=== PATIENT | female | born 1985 ===

== ENCOUNTER 2020-09-15 15:33 | Outpatient (REF) | payer OTHER, SELFPAY | END 2020-09-15 15:34 | disposition home or self-care (01) | LOC: HO.LAB 15:33 | PROVIDERS: Visit Provider Internal Medicine | DX: Z20.822 Contact with and (suspected) exposure to COVID-19 (principal) | CPT/HCPCS: C9803; U0003; U0005 ==

== ENCOUNTER 2021-04-14 13:40 | Emergency (ER) | payer OTHER, SELFPAY ==
[2021-04-14 14:11] VITALS: BP 129/64; PULSE 77; RESP 18; TEMP 36.8; O2SAT 100; BMI 38.2
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
[2021-04-14] MEDS: Fluorescein Sodium STRIP 1 STRIP EYE-RIGHT (16:00)
[2021-04-14] MEDS: Tetracaine HCl/PF 0.5% Oph Sol 4 ML DROPS 2 DROP EYE-RIGHT (16:00)
[2021-04-14] MEDS: Erythromycin Base 0.5% Oph Oin 1 GM TUBE 1 CM EYE-RIGHT (16:54)
== END 2021-04-14 17:08 | disposition home or self-care (01) ==
PROVIDERS: Emergency Provider Emergency Medicine Emergency Medical Services; PCP Internal Medicine
DX: S05.01XA Injury of conjunctiva and corneal abrasion without foreign body, right eye, initial encounter (principal); Y29.XXXA Contact with blunt object, undetermined intent, initial encounter; Y93.9 Activity, unspecified; Y92.009 Unspecified place in unspecified non-institutional (private) residence as the place of occurrence of the external cause; Y99.9 Unspecified external cause status
CPT/HCPCS: 99282; 99283

== ENCOUNTER 2022-10-08 10:58 | Emergency (ER) | payer OTHER, SELFPAY ==
[2022-10-08 11:31] VITALS: BP 123/72; PULSE 78; RESP 18; TEMP 36.8; O2SAT 98; BMI 40.7
--- NOTE | 2022-10-08 11:31 | ED_ITS ---
HPI - Abdominal Pain General Chief Complaint: Abdominal Pain <VIVIAN Boudreaux - Last Filed: 10/08/22 11:52> Stated Complaint: Acid reflux/Lightheaded <VIVIAN Boudreaux - Last Filed: 10/08/22 11:52> Time Seen by Provider: 10/08/22 11:49 <VIVIAN Boudreaux - Last Filed: 10/08/22 11:52> Source: patient <Boyd Bustamante - Last Filed: 10/08/22 14:58> Limitations: no limitations <Boyd Bustamante - Last Filed: 10/08/22 14:58> History of Present Illness HPI narrative: 37-year-old female who presents to the ER with complaints of feeling nauseous and started on Friday with reflux type symptoms all day. Patient took some Tums with some slight relief. Patient felt a little better on Friday and had some slight p.o. intake. Patient states symptoms worse at night where she felt bloated and had bouts of diarrhea Friday night. Patient states she began to feel weak at that time. Patient denies any recent sick contacts. Patient is not on any prescribed medications for reflux disease. Patient has a history of iron deficiency anemia but she is not currently taking iron at this time. Patient denies any abdominal surgical procedures other than C-sections. No recent travel history. No fever chills. Patient feeling weak dizzy and lightheaded. <Boyd Bustamante - Last Filed: 10/08/22 14:58> Related Data Home Medications: Previous Rx's Medication Instructions Recorded erythromycin 5 mg/gram (0.5 %) eye 0.5 inch ophthalmic (eye) BID 7 04/14/21 ointment days #3.5 grams omeprazole 20 mg capsule,delayed 20 mg PO DAILY #30 caps 10/08/22 release <VIVIAN Boudreaux Last Filed: 10/08/22 11:52> Allergies/Adverse Reactions: Allergies Allergy/AdvReac Type Severity Reaction Status Date / Time No Known Allergies Allergy Verified 04/14/21 14:10 <VIVIAN Boudreaux Last Filed: 10/08/22 11:52> Review of Systems Review of Systems General: No fever, no chills, positive weakness, positive dizziness Ophthalmology: No vision changes, no discharge ENT: No sore throat, no ear pain Cardiovascular: No chest pain, no peripheral edema, no shortness of breath Respiratory: No dyspnea, no sputum production, no cough Muscle skeletal: No malaise, no back pain, no neck pain, no extremity pain GI: Positive abdominal bloating, positive diarrhea, positive nausea which has resolved : No dysuria, no urgency, no frequency Psychiatric: No depression, no suicidal ideation, no homicidal ideation Skin: No rash Immunology: No immunocompromised Hematology: No bleeding, no bruising <Boyd Bustamante - Last Filed: 10/08/22 14:58> [facility] Past Medical History Medical History: Medical History (Updated 10/08/22 @ 14:57 by Boyd Bustamante) Back pain <VIVIAN Boudreaux Last Filed: 10/08/22 11:52> Social History Social History: Social History Alcohol intake: former Smoked in Last 30 Days: Yes Use of substances other than those prescribed or required for medical reasons: No Advance Directives: No Advance Directives Information Provided: Yes <VIVIAN Boudreaux - Last Filed: 10/08/22 11:52> Physical Exam ED Vital Signs: Vital Signs - 24 hr 10/08/22 11:31 Temperature 98.2 F Pulse Rate 78 Respiratory Rate 18 Blood Pressure 123/72 Pulse Oximetry 98 Oxygen Delivery Method Room Air BMI result Body Mass Index 40.7 <VIVIAN Boudreaux - Last Filed: 10/08/22 11:52> Vital Signs - 24 hr 10/08/22 11:31 Temperature 98.2 F Pulse Rate 78 Respiratory Rate 18 Blood Pressure 123/72 Pulse Oximetry 98 Oxygen Delivery Method Room Air BMI result Body Mass Index 40.7 <Boyd Bustamante - Last Filed: 10/08/22 14:58> General appearance: Awake, alert, cooperative, in no acute distress, nont oxic in appearance Skin: Warm, dry, no rash Eyes: PERRL, EOMI, no icterus ENT: Oropharynx normal, uvula midline Neck: Soft supple full range of motion, no nuchal rigidity Pulmonary: Breath sounds clear to auscultation bilaterally, no accessory muscle use Cardiovascular: Regular rate and rhythm, no murmurs and rubs Abdomen: Soft nontender, no rebound or guarding, positive bowel sounds Extremities: No deformity, nontender, no peripheral edema noted Neuro: Alert oriented x3, no focal deficit Psych: Normal affect <Boyd Bustamante - Last Filed: 10/08/22 14:58> Course Course Course Narrative: RME: 37yo F w/no sig PMHx c/o nausea, myalgias, generalized fatigue, lethargy, watery diarrhea & lightheadedness since Friday. Nontoxic appearing, vital signs stable labs, UA, COVID/flu ordered Full HPI, ROS and PE to be performed by primary ED provider. <VIVIAN Boudreaux - Last Filed: 10/08/22 11:52> Medical Decision Making Medical Decision Making MDM Narrative: Reflux disease Dehydration Viral gastroenteritis H.pylori Viral syndrome 37-year-old female with multiple symptoms presents the ER feeling weak lightheaded. Positive bouts of diarrhea reflux symptoms. 1000 mL normal saline IV CBC CMP UA pending 12:31 abdomen soft nontender no rebound or guarding no peritoneal signs. Low suspicion for into abdominal surgical abdomen at this time 13:00 patient is resting comfortably abdomen nontender patient states symptoms have improved. Will continue IV hydration till finished 14:56 plant dispatched patient home at this time respiratory swab was negative for COVID-19 influenza. Labs mostly unremarkable at this time symptoms improve since IV hydration symptoms likely secondary to gastritis and underlying reflux disease close follow-up with PCP will be recommended. <Boyd Bustamante - Last Filed: 10/08/22 14:58> Lab Data Result Diagrams: 10/08/22 11:52 10/08/22 11:52 <VIVIAN Boudreaux - Last Filed: 10/08/22 11:52> Labs: Lab Results 10/08/22 10/08/22 10/08/22 Range/Units 11:52 11:52 11:52 WBC 5.4 (4.8-10.8) X10*3/uL RBC 4.74 (4.20-5.50) X10*6/uL Hgb 12.3 (12.0-16.0) g/dl Hct 38.1 (37.0-47.0) % MCV 80.4 (80.0-98.0) fL MCH 25.9 L (27.0-33.0) pg MCHC 32.3 (31.0-35.0) g/dl RDW 13.4 (11.0-16.0) % Plt Count 232 (160-400) X10*3/uL MPV 10.5 (9.4-12.3) fL Immature Gran % (Auto) 0.4 (0.0-0.4) % Neut % (Auto) 66.0 (45-73) % Lymph % (Auto) 23.9 (20-40) % Pickett % (Auto) 6.4 (2-11) % Eos % (Auto) 3.1 (0-4) % Baso % (Auto) 0.2 (0-2) % Lymph # (Auto) 1.3 (1.2-4.9) X10*3/uL Pickett # (Auto) 0.4 (0.1-1.2) X10*3/uL Eos # (Auto) 0.2 (0.0-0.4) X10*3/uL Baso # (Auto) 0.0 (0.0-0.2) X10*3/uL Abs Immat Gran (auto) 0.02 (0.00-0.03) X10*3/uL Absolute Neuts (auto) 3.6 (2.0-8.3) x10*3/uL Absolute Nucleated RBC 0.000 (0.0-0.012) X10*3/uL Nucleated RBC % (auto) 0.0 (0.0-0.2) /100WBC Sodium 138 (135-145) mmol/L Potassium 3.7 (3.3-5.1) mmol/L Chloride 107 (96-108) mmol/L Carbon Dioxide 23 (22-29) mmol/L Anion Gap 12 (12-20) BUN 6 L (9-16) mg/dL Creatinine 0.76 (0.5-1.4) mg/dL Estim Creat Clear Calc 128.8 Estimated GFR > 60 Random Glucose 90 (60-115) mg/dL Calcium 8.4 (8.4-10.2) mg/dL Magnesium 2.2 (1.6-2.6) mg/dL Total Bilirubin 0.4 (0.0-1.0) mg/dL Direct Bilirubin 0.1 (0.0-0.5) mg/dL AST 33 H (5-31) U/L ALT 48 H (0-31) U/L Alkaline Phosphatase 84 (39-117) U/L Troponin I High Sens < 2.7 (<3.5-17.0) ng/L Total Protein 7.0 (6.5-8.0) g/dL Albumin 3.8 (3.5-5.0) g/dL Lipase 26 (8-78) U/L Urine Color Urine Appearance Urine pH (5.0-9.0) Ur Specific [place] (1.005-1.025) Urine Protein (Neg-Trace) mg/dL Urine Glucose (UA) (Negative) mg/dL Urine Ketones (Negative) mg/dL Urine Blood (Negative) Urine Nitrite (Negative) Ur Leukocyte Esterase (Negative) Urine RBC (0-2) /HPF Urine WBC (0-5) /HPF Ur Squamous Epith Cells (0-2) /HPF Urine Bacteria (None Seen) Hyaline Casts (0-2) /LPF Urine Test (NEGATIVE) COVID-19 (KYLIE) (Negative) COVID-19 Clin Com Influenza Type A (AARON) (Negative) Influenza Type B (AARON) (Negative) Influenza A & B Note 10/08/22 10/08/22 10/08/22 Range/Units 11:52 11:52 11:52 WBC (4.8-10.8) X10*3/uL RBC (4.20-5.50) X10*6/uL Hgb (12.0-16.0) g/dl Hct (37.0-47.0) % MCV (80.0-98.0) fL MCH (27.0-33.0) pg MCHC (31.0-35.0) g/dl RDW (11.0-16.0) % Plt Count (160-400) X10*3/uL MPV (9.4-12.3) fL Immature Gran % (Auto) (0.0-0.4) % Neut % (Auto) (45-73) % Lymph % (Auto) (20-40) % Pickett % (Auto) (2-11) % Eos % (Auto) (0-4) % Baso % (Auto) (0-2) % Lymph # (Auto) (1.2-4.9) X10*3/uL Pickett # (Auto) (0.1-1.2) X10*3/uL Eos # (Auto) (0.0-0.4) X10*3/uL Baso # (Auto) (0.0-0.2) X10*3/uL Abs Immat Gran (auto) (0.00-0.03) X10*3/uL Absolute Neuts (auto) (2.0-8.3) x10*3/uL Absolute Nucleated RBC (0.0-0.012) X10*3/uL Nucleated RBC % (auto) (0.0-0.2) /100WBC Sodium (135-145) mmol/L Potassium (3.3-5.1) mmol/L Chloride (96-108) mmol/L Carbon Dioxide (22-29) mmol/L Anion Gap (12-20) BUN (9-16) mg/dL Creatinine (0.5-1.4) mg/dL Estim Creat Clear Calc Estimated GFR Random Glucose (60-115) mg/dL Calcium (8.4-10.2) mg/dL Magnesium (1.6-2.6) mg/dL Total Bilirubin (0.0-1.0) mg/dL Direct Bilirubin (0.0-0.5) mg/dL AST (5-31) U/L ALT (0-31) U/L Alkaline Phosphatase (39-117) U/L Troponin I High Sens (<3.5-17.0) ng/L Total Protein (6.5-8.0) g/dL Albumin (3.5-5.0) g/dL Lipase (8-78) U/L Urine Color Yellow Urine Appearance Clear Urine pH 6.5 (5.0-9.0) Ur Specific [place] <= 1.005 (1.005-1.025) Urine Protein Negative (Neg-Trace) mg/dL Urine Glucose (UA) Negative (Negative) mg/dL Urine Ketones Negative (Negative) mg/dL Urine Blood Trace H (Negative) Urine Nitrite Negative (Negative) Ur Leukocyte Esterase Negative (Negative) Urine RBC 0-2 (0-2) /HPF Urine WBC 0-5 (0-5) /HPF Ur Squamous Epith Cells 0-2 (0-2) /HPF Urine Bacteria None Seen (None Seen) Hyaline Casts 0-2 (0-2) /LPF Urine Test (NEGATIVE) COVID-19 (KYLIE) Negative (Negative) COVID-19 Clin Com See Note Influenza Type A (AARON) Negative (Negative) Influenza Type B (AARON) Negative (Negative) Influenza A & B Note See Note 10/08/22 Range/Units 11:52 WBC (4.8-10.8) X10*3/uL RBC (4.20-5.50) X10*6/uL Hgb (12.0-16.0) g/dl Hct (37.0-47.0) % MCV (80.0-98.0) fL MCH (27.0-33.0) pg MCHC (31.0-35.0) g/dl RDW (11.0-16.0) % Plt Count (160-400) X10*3/uL MPV (9.4-12.3) fL Immature Gran % (Auto) (0.0-0.4) % Neut % (Auto) (45-73) % Lymph % (Auto) (20-40) % Pickett % (Auto) (2-11) % Eos % (Auto) (0-4) % Baso % (Auto) (0-2) % Lymph # (Auto) (1.2-4.9) X10*3/uL Pickett # (Auto) (0.1-1.2) X10*3/uL Eos # (Auto) (0.0-0.4) X10*3/uL Baso # (Auto) (0.0-0.2) X10*3/uL Abs Immat Gran (auto) (0.00-0.03) X10*3/uL Absolute Neuts (auto) (2.0-8.3) x10*3/uL Absolute Nucleated RBC (0.0-0.012) X10*3/uL Nucleated RBC % (auto) (0.0-0.2) /100WBC Sodium (135-145) mmol/L Potassium (3.3-5.1) mmol/L Chloride (96-108) mmol/L Carbon Dioxide (22-29) mmol/L Anion Gap (12-20) BUN (9-16) mg/dL Creatinine (0.5-1.4) mg/dL Estim Creat Clear Calc Estimated GFR Random Glucose (60-115) mg/dL Calcium (8.4-10.2) mg/dL Magnesium (1.6-2.6) mg/dL Total Bilirubin (0.0-1.0) mg/dL Direct Bilirubin (0.0-0.5) mg/dL AST (5-31) U/L ALT (0-31) U/L Alkaline Phosphatase (39-117) U/L Troponin I High Sens (<3.5-17.0) ng/L Total Protein (6.5-8.0) g/dL Albumin (3.5-5.0) g/dL Lipase (8-78) U/L Urine Color Urine Appearance Urine pH (5.0-9.0) Ur Specific [place] (1.005-1.025) Urine Protein (Neg-Trace) mg/dL Urine Glucose (UA) (Negative) mg/dL Urine Ketones (Negative) mg/dL Urine Blood (Negative) Urine Nitrite (Negative) Ur Leukocyte Esterase (Negative) Urine RBC (0-2) /HPF Urine WBC (0-5) /HPF Ur Squamous Epith Cells (0-2) /HPF Urine Bacteria (None Seen) Hyaline Casts (0-2) /LPF Urine Test NEGATIVE (NEGATIVE) COVID-19 (KYLIE) (Negative) COVID-19 Clin Com Influenza Type A (AARON) (Negative) Influenza Type B (AARON) (Negative) Influenza A & B Note <VIVIAN Boudreaux - Last Filed: 10/08/22 11:52> Lab Results 10/08/22 10/08/22 10/08/22 Range/Units 11:52 11:52 11:52 WBC 5.4 (4.8-10.8) X10*3/uL RBC 4.74 (4.20-5.50) X10*6/uL Hgb 12.3 (12.0-16.0) g/dl Hct 38.1 (37.0-47.0) % MCV 80.4 (80.0-98.0) fL MCH 25.9 L (27.0-33.0) pg MCHC 32.3 (31.0-35.0) g/dl RDW 13.4 (11.0-16.0) % Plt Count 232 (160-400) X10*3/uL MPV 10.5 (9.4-12.3) fL Immature Gran % (Auto) 0.4 (0.0-0.4) % Neut % (Auto) 66.0 (45-73) % Lymph % (Auto) 23.9 (20-40) % Pickett % (Auto) 6.4 (2-11) % Eos % (Auto) 3.1 (0-4) % Baso % (Auto) 0.2 (0-2) % Lymph # (Auto) 1.3 (1.2-4.9) X10*3/uL Pickett # (Auto) 0.4 (0.1-1.2) X10*3/uL Eos # (Auto) 0.2 (0.0-0.4) X10*3/uL Baso # (Auto) 0.0 (0.0-0.2) X10*3/uL Abs Immat Gran (auto) 0.02 (0.00-0.03) X10*3/uL Absolute Neuts (auto) 3.6 (2.0-8.3) x10*3/uL Absolute Nucleated RBC 0.000 (0.0-0.012) X10*3/uL Nucleated RBC % (auto) 0.0 (0.0-0.2) /100WBC Sodium 138 (135-145) mmol/L Potassium 3.7 (3.3-5.1) mmol/L Chloride 107 (96-108) mmol/L Carbon Dioxide 23 (22-29) mmol/L Anion Gap 12 (12-20) BUN 6 L (9-16) mg/dL Creatinine 0.76 (0.5-1.4) mg/dL Estim Creat Clear Calc 128.8 Estimated GFR > 60 Random Glucose 90 (60-115) mg/dL Calcium 8.4 (8.4-10.2) mg/dL Magnesium 2.2 (1.6-2.6) mg/dL Total Bilirubin 0.4 (0.0-1.0) mg/dL Direct Bilirubin 0.1 (0.0-0.5) mg/dL AST 33 H (5-31) U/L ALT 48 H (0-31) U/L Alkaline Phosphatase 84 (39-117) U/L Troponin I High Sens < 2.7 (<3.5-17.0) ng/L Total Protein 7.0 (6.5-8.0) g/dL Albumin 3.8 (3.5-5.0) g/dL Lipase 26 (8-78) U/L Urine Color Urine Appearance Urine pH (5.0-9.0) Ur Specific [place] (1.005-1.025) Urine Protein (Neg-Trace) mg/dL Urine Glucose (UA) (Negative) mg/dL Urine Ketones (Negative) mg/dL Urine Blood (Negative) Urine Nitrite (Negative) Ur Leukocyte Esterase (Negative) Urine RBC (0-2) /HPF Urine WBC (0-5) /HPF Ur Squamous Epith Cells (0-2) /HPF Urine Bacteria (None Seen) Hyaline Casts (0-2) /LPF Urine Test (NEGATIVE) COVID-19 (KYLIE) (Negative) COVID-19 Clin Com Influenza Type A (AARON) (Negative) Influenza Type B (AARON) (Negative) Influenza A & B Note 10/08/22 10/08/22 10/08/22 Range/Units 11:52 11:52 11:52 WBC (4.8-10.8) X10*3/uL RBC (4.20-5.50) X10*6/uL Hgb (12.0-16.0) g/dl Hct (37.0-47.0) % MCV (80.0-98.0) fL MCH (27.0-33.0) pg MCHC (31.0-35.0) g/dl RDW (11.0-16.0) % Plt Count (160-400) X10*3/uL MPV (9.4-12.3) fL Immature Gran % (Auto) (0.0-0.4) % Neut % (Auto) (45-73) % Lymph % (Auto) (20-40) % Pickett % (Auto) (2-11) % Eos % (Auto) (0-4) % Baso % (Auto) (0-2) % Lymph # (Auto) (1.2-4.9) X10*3/uL [place]ett # (Auto) (0.1-1.2) X10*3/uL Eos # (Auto) (0.0-0.4) X10*3/uL Baso # (Auto) (0.0-0.2) X10*3/uL Abs Immat Gran (auto) (0.00-0.03) X10*3/uL Absolute Neuts (auto) (2.0-8.3) x10*3/uL Absolute Nucleated RBC (0.0-0.012) X10*3/uL Nucleated RBC % (auto) (0.0-0.2) /100WBC Sodium (135-145) mmol/L Potassium (3.3-5.1) mmol/L Chloride (96-108) mmol/L Carbon Dioxide (22-29) mmol/L Anion Gap (12-20) BUN (9-16) mg/dL Creatinine (0.5-1.4) mg/dL Estim Creat Clear Calc Estimated GFR Random Glucose (60-115) mg/dL Calcium (8.4-10.2) mg/dL Magnesium (1.6-2.6) mg/dL Total Bilirubin (0.0-1.0) mg/dL Direct Bilirubin (0.0-0.5) mg/dL AST (5-31) U/L ALT (0-31) U/L Alkaline Phosphatase (39-117) U/L Troponin I High Sens (<3.5-17.0) ng/L Total Protein (6.5-8.0) g/dL Albumin (3.5-5.0) g/dL Lipase (8-78) U/L Urine Color Yellow Urine Appearance Clear Urine pH 6.5 (5.0-9.0) Ur Specific [place] <= 1.005 (1.005-1.025) Urine Protein Negative (Neg-Trace) mg/dL Urine Glucose (UA) Negative (Negative) mg/dL Urine Ketones Negative (Negative) mg/dL Urine Blood Trace H (Negative) Urine Nitrite Negative (Negative) Ur Leukocyte Esterase Negative (Negative) Urine RBC 0-2 (0-2) /HPF Urine WBC 0-5 (0-5) /HPF Ur Squamous Epith Cells 0-2 (0-2) /HPF Urine Bacteria None Seen (None Seen) Hyaline Casts 0-2 (0-2) /LPF Urine Test (NEGATIVE) COVID-19 (KYLIE) Negative (Negative) COVID-19 Clin Com See Note Influenza Type A (AARON) Negative (Negative) Influenza Type B (AARON) Negative (Negative) Influenza A & B Note See Note 10/08/22 Range/Units 11:52 WBC (4.8-10.8) X10*3/uL RBC (4.20-5.50) X10*6/uL Hgb (12.0-16.0) g/dl Hct (37.0-47.0) % MCV (80.0-98.0) fL MCH (27.0-33.0) pg MCHC (31.0-35.0) g/dl RDW (11.0-16.0) % Plt Count (160-400) X10*3/uL MPV (9.4-12.3) fL Immature Gran % (Auto) (0.0-0.4) % Neut % (Auto) (45-73) % Lymph % (Auto) (20-40) % [place]ett % (Auto) (2-11) % Eos % (Auto) (0-4) % Baso % (Auto) (0-2) % Lymph # (Auto) (1.2-4.9) X10*3/uL [place] # (Auto) (0.1-1.2) X10*3/uL Eos # (Auto) (0.0-0.4) X10*3/uL Baso # (Auto) (0.0-0.2) X10*3/uL Abs Immat Gran (auto) (0.00-0.03) X10*3/uL Absolute Neuts (auto) (2.0-8.3) x10*3/uL Absolute Nucleated RBC (0.0-0.012) X10*3/uL Nucleated RBC % (auto) (0.0-0.2) /100WBC Sodium (135-145) mmol/L Potassium (3.3-5.1) mmol/L Chloride (96-108) mmol/L Carbon Dioxide (22-29) mmol/L Anion Gap (12-20) BUN (9-16) mg/dL Creatinine (0.5-1.4) mg/dL Estim Creat Clear Calc Estimated GFR Random Glucose (60-115) mg/dL Calcium (8.4-10.2) mg/dL Magnesium (1.6-2.6) mg/dL Total Bilirubin (0.0-1.0) mg/dL Direct Bilirubin (0.0-0.5) mg/dL AST (5-31) U/L ALT (0-31) U/L Alkaline Phosphatase (39-117) U/L Troponin I High Sens (<3.5-17.0) ng/L Total Protein (6.5-8.0) g/dL Albumin (3.5-5.0) g/dL Lipase (8-78) U/L Urine Color Urine Appearance Urine pH (5.0-9.0) Ur Specific [place] (1.005-1.025) Urine Protein (Neg-Trace) mg/dL Urine Glucose (UA) (Negative) mg/dL Urine Ketones (Negative) mg/dL Urine Blood (Negative) Urine Nitrite (Negative) Ur Leukocyte Esterase (Negative) Urine RBC (0-2) /HPF Urine WBC (0-5) /HPF Ur Squamous Epith Cells (0-2) /HPF Urine Bacteria (None Seen) Hyaline Casts (0-2) /LPF Urine Test NEGATIVE (NEGATIVE) COVID-19 ([facility]IE) (Negative) COVID-19 Clin Com Influenza Type A (AARON) (Negative) Influenza Type B (AARON) (Negative) Influenza A & B Note <Boyd Bustamante - Last Filed: 10/08/22 14:58> Discharge Plan Discharge Clinical Impression: Gastroenteritis, Acid reflux disease <VIVIAN Boudreaux - Last Filed: 10/08/22 11:52> Patient Disposition: Home, Self-Care <VIVIAN Boudreaux - Last Filed: 10/08/22 11:52> Instructions: Gastroenteritis (ED), Gastroesophageal Reflux Disease (DC) <VIVIAN Boudreaux - Last Filed: 10/08/22 11:52> Additional Instructions: [place] diet increase fluids rest Symptoms are concerning for underlying reflux disease and prescribed loop omeprazole at this time which should take daily Close follow-up with PCP is recommended Respiratory swab for influenza COVID-19 is negative Return if symptoms worsen <VIVIAN Boudreaux Last Filed: 10/08/22 11:52> Prescriptions: New omeprazole 20 mg capsule,delayed release(DR/EC) 20 mg PO DAILY Qty: 30 0RF No Action erythromycin 5 mg/gram (0.5 %) ointment 0.5 inch ophthalmic (eye) BID 7 Days Qty: 3.5 0RF Rx Instructions: Apply to right eye twice a day for 7 days <VIVIAN Boudreaux - Last Filed: 10/08/22 11:52>
[2022-10-08 12:00] LABS: MANUAL DIFF FLAG NO
[2022-10-08 12:01] LABS: UPreg QC Valid YES
[2022-10-08 12:02] LABS: Appearance Urine Clear; Basophils Percent Auto 0.2 % (0-2); Color Urine Yellow; Eosinophils Absolute Auto 0.2 X10*3/uL (0.0-0.4); Eosinophils Percent Auto 3.1 % (0-4); Glucose Urine UA Negative (Negative); Hematocrit 38.1 % (37.0-47.0); Hemoglobin 12.3 g/dl (12.0-16.0); Imm Gran Abs Auto 0.02 X10*3/uL (0.00-0.03); Imm Gran Pct Auto 0.4 % (0.0-0.4); Leukocyte Esterase Urine Negative (Negative); Lymphocytes Absolute Auto 1.3 X10*3/uL (1.2-4.9); Lymphocytes Percent Auto 23.9 % (20-40); Mean Corpuscular HGB Conc 32.3 g/dl (31.0-35.0); Mean Corpuscular Hemoglobin 25.9 pg (27.0-33.0); Mean Corpuscular Volume 80.4 fL (80.0-98.0); Mean Platelet Volume 10.5 fL (9.4-12.3); Monocytes Absolute Auto 0.4 X10*3/uL (0.1-1.2); Monocytes Percent Auto 6.4 % (2-11); Neutrophils Absolute Auto 3.6 x10*3/uL (2.0-8.3); Nitrite Urine Negative (Negative); PH 6.5 (5.0-9.0); Platelet Count 232 X10*3/uL (160-400); Red Blood Count 4.74 X10*6/uL (4.20-5.50); Red Cell Distribution Width 13.4 % (11.0-16.0); Specific Gravity - Urine <= 1.005 (1.005-1.025); UMIC TRIGGER UACC YES; Urine Blood Trace (Negative); Urine Ketones Negative (Negative); Urine Protein Negative (Neg-Trace); White Blood Count 5.4 X10*3/uL (4.8-10.8)
[2022-10-08 12:03] LABS: Urine Pregnancy NEGATIVE (NEGATIVE)
--- NOTE | 2022-10-08 12:10 | PC.NURSE ---
Patient complaining of abdominal pain. Patient states that she has some acid reflux that she takes tums for mostly. Patient states that Friday she woke up and felt unwell, had some body aches and nausea. Patient also states that she has had some diarrhea. Patient with some tenderness on palpitation.
[2022-10-08 12:17] LABS: Bacteria Urine None Seen (None Seen); Hyaline Casts Urine 0-2 /LPF (0-2); RBC Urine 0-2 /HPF (0-2); Squamous Epithelial Cell Urine 0-2 /HPF (0-2); WBC Urine 0-5 /HPF (0-5)
[2022-10-08 12:18] LABS: COVID-19 Test Negative (Negative); IDNOW Serial# 08D9AD1C; IDNOW Serial# BCCEAD1C; Influenza A Negative (Negative); Influenza B2 Negative (Negative)
[2022-10-08 12:28] LABS: Troponin-I High Sensitivity < 2.7 ng/L (<3.5-17.0)
[2022-10-08 12:40] LABS: Alanine Aminotransferase 48 U/L (0-31); Albumin Level 3.8 g/dL (3.5-5.0); Alkaline Phosphatase 84 U/L (39-117); Anion Gap 12 (12-20); Aspartate Amino Transferase 33 U/L (5-31); Bilirubin Direct 0.1 mg/dL (0.0-0.5); Bilirubin Total 0.4 mg/dL (0.0-1.0); Blood Urea Nitrogen 6 mg/dL (9-16); Calcium 8.4 mg/dL (8.4-10.2); Carbon Dioxide 23 mmol/L (22-29); Chloride 107 mmol/L (96-108); Creatinine Clr Calc Pharmacy 128.8; Estimated Glomerular Filt Rate > 60; Glucose Random 90 mg/dL (60-115); Lipase 26 U/L (8-78); Magnesium 2.2 mg/dL (1.6-2.6); Potassium 3.7 mmol/L (3.3-5.1); Sodium 138 mmol/L (135-145)
[2022-10-08 15:27] VITALS: BP 120/79; PULSE 72; RESP 16; O2SAT 100
== END 2022-10-08 15:29 | disposition home or self-care (01) ==
PROVIDERS: Physician Assistant; Emergency Provider Emergency Medicine; PCP Internal Medicine
DX: K52.9 Noninfective gastroenteritis and colitis, unspecified (principal); K21.9 Gastro-esophageal reflux disease without esophagitis; Z20.822 Contact with and (suspected) exposure to COVID-19; D50.9 Iron deficiency anemia, unspecified
CPT/HCPCS: 36415; 80048; 80076; 81001; 81003; 81025; 83690; 83735; 84484; 85025; 87502; 87635; 99283; 99284

== ENCOUNTER 2025-05-18 13:41 | Outpatient (AMB) | payer OTHER, MEDICAID, SELFPAY ==
[2025-05-18 13:48] VITALS: BMI 40.1
--- NOTE | 2025-05-18 13:48 | A.PHYSOV_ITS ---
Vital Signs 05/18/25 13:48 Height 5 ft 5.5 in Weight 245 lb BMI 40.1 Intake Visit Reasons: increased back pain- order MRI Intake Note: Patient is a 40 year old female here today for increased lower back pain. [employer] Officer Required: No Allergies No Known Allergies Allergy (Verified 04/14/21 14:10) HPI Comments Details: History of Present Illness The patient is a 40-year-old female presenting with recurrent low back pain with associated radicular symptoms. She recently completed a course of physical therapy, which initially helped her move with less soreness and pain, but the symptoms have returned. Her pain occurs in flare-ups and is consistently located in the low back, predominantly on the left side, with some left hip involvement. The current flare-up began on a Friday night and led to significant discomfort, limiting her ability to sit for prolonged periods. This episode progressed to include numbness in the left leg and tingling in her feet and arms. A new symptom which started during her physical therapy is a tingling sensation in her left arm extending to her fingers. All sensory symptoms are confined to the left side. She has also experienced muscle spasms that have impacted her ability to walk. Her symptoms are worse in the mornings with stiffness, though this improves throughout the day as she becomes more limber. She reports episodes of tightness where she cannot fully straighten her back. The patient has a known history of spinal arthritis, which is considered a progressive condition, with the area of concern being the L5-S1 level. Pain Description - Onset: The patient reports recurrent pain that comes in flare-ups, with the most recent episode starting on a Friday night. - Location: The pain is located in the low back, primarily on the left side, and also involves the left hip. - Radiation: She experiences numbness radiating down the left leg and tingling in her feet, left arm, and fingers. - Quality: The patient describes the sensations as soreness, pain, discomfort, muscle spasms, numbness, and tingling. - Exacerbating factors: Symptoms are worsened by prolonged sitting and spinal extension. - Alleviating factors: Symptoms improve with movement, standing up, and leaning forward. - Interference with function: The pain interferes with her ability to sit for extended periods and can make walking and straightening up difficult, sometimes requiring her to take days off from work. [facility] Medical History (Updated 05/18/25 @ 17:35 by VIVIAN Ramos) Back pain Surgical History Previous section Social History Alcohol intake: current Alcohol intake frequency: holidays/special occasions only Patient Tobacco Use Status: Never used Tobacco Use of substances other than those prescribed or required for medical reasons: No Review of Systems Narrative Review of Systems - Musculoskeletal: Reports recurrent left-sided low back pain, left hip pain, and muscle spasms. - Neurological: Reports numbness in the left leg and tingling in the feet, left arm, and fingers. - Constitutional: Reports weight loss. - Psychiatric: Reports feeling nervous and anxious. Physical Exam Exam Exam: Physical Exam Lumbar Spine: Examination of the lumbar spine, there is no visible swelling or deformity. She is tender to lower lumbar facets. She is otherwise nontender. Full range of motion of the lumbar spine. She does have an increase in pain with facet loading. Special Tests: Lhermittes sign was negative Heel Toe walk is normal Left straight leg raise: Negative Right straight leg raise: Negative Special tests Sean test is negative Ganslen's test is negative SI Joint compression test negative Reji test negative Piriformis stretch is negative Lower Extremities: Full range of motion bilateral lower extremities. No calf pain or edema. She is markedly tender to greater trochanteric bursa. Neuro: Sensation: Intact to lower extremities bilaterally Strength L2 (Psoas): 5/5 on the left and 5/5 on the right. L3 (Quads): 5/5 on the left and 5/5 on the right. L4 (Ant tibialis): 5/5 on the left and 5/5 on the right. L5 (EHL) 5/5 on the left and 5/5 on the right. S1 (Gastroc): 5/5 on the left and 5/5 on the right. DTR L4: (Patellar) Left 2 Right 2 S1: (Achilles) Left 2 Right 2 Babinski Downgoing No pathologic clonus. No involuntary movement. Vital Signs: BMI result Body Mass Index 40.1 Assessment & Plan Assessment & Plan (1) Lumbar radiculopathy: Code(s): M54.16 - Radiculopathy, lumbar region Category: Medical (2) Lumbar spondylosis: Code(s): M47.816 - Spondylosis without myelopathy or radiculopathy, lumbar region Category: Medical Plan Pain Management - Analgesia: The patient recently completed physical therapy which provided some temporary relief. - Activities of Daily Living: Her pain limits her ability to sit for long periods and can make walking difficult, impacting her work attendance. - Affect: She reports feeling nervous and anxious about her left-sided symptoms and the upcoming MRI. Plan Patient was informed and verbally consented to the use of an ambient scribe for clinic note documentation during this visit. 1. Left-Sided Sciatica The patient's symptoms of left-sided low back pain radiating down the leg with numbness and tingling are consistent with sciatica, likely secondary to degenerative spinal disease at the L5-S1 level. An MRI of the lumbar spine will be ordered to investigate for a pinched nerve or disc bulge. Patient has failed conservative treatment by completing physical therapy. Due to potential claustrophobia, Ativan will be prescribed for the patient to take one hour prior to the MRI. Paperwork will be provided to allow for up to three days off from work per month for acute exacerbations. A follow-up will be scheduled to discuss the MRI results. 2. Spinal Arthritis The patient's underlying spinal arthritis is recognized as a progressive condition contributing to her symptoms. She is advised to continue with her physical therapy exercises, including the use of bands, and to maintain low- impact activities such as walking, biking, and yoga. She is instructed to avoid heavy weight training until her MRI results are reviewed. She is also encouraged to continue with her weight loss efforts to reduce pressure on her back. Discussion Notes I informed the patient that her symptoms are consistent with sciatica, likely related to her progressive spinal arthritis at the L5-S1 level. To further evaluate the cause of her symptoms, I am ordering an MRI of her lumbar spine. We discussed her anxiety about the procedure, and I will prescribe Ativan for her to take one hour prior to the scan. I advised her to continue her physical therapy exercises and low-impact activi ties but to avoid heavy weight training pending the MRI results. I also agreed to provide her with paperwork to allow for up to 3 days off from work per month for acute symptom exacerbations. We will schedule a follow-up appointment to review the MRI findings and discuss the next steps in her treatment. Patient Instructions - An MRI of your lower back will be ordered. The imaging facility will contact you to schedule the appointment. - A prescription for Ativan will be sent to your pharmacy. Take one pill one hour before your MRI to help you relax. - Continue doing your exercises from physical therapy, including those with exercise bands. - You can continue with low-impact activities like walking, biking, and yoga. - Do not do any heavy weight training until we review your MRI results. - Continue your efforts with healthy eating and weight loss, as this will help reduce stress on your back. - We will provide you with paperwork for your employer allowing for 1 to 3 days off per month for severe pain flare-ups. - We will schedule a follow-up visit after your MRI is completed to discuss the results. Orders: Orders MR lumbar spine wo con Today M51.16 - Intervertebral disc disorders with radiculopathy, lumbar region Medications: New lorazepam (Ativan) 1 mg PO DAILY PRN 1 tab 0RF anxiety 1 day F40.240 - Claustrophobia Coding Level of Care Code Est Pt Level 3 (57263) Diagnoses Lumbar radiculopathy M54.16 Lumbar spondylosis M47.816
--- OUTSIDE RECORDS SUMMARY | 2025-05-18 18:12 | XMS_ITS ---
Author Name [facility] Organization Unknown Care Team Organization Name Specialty Phone Email Start Date [facility] 024 [facility] Nicanor Gomes Primary Care 08/07/20222023 [facility] 04/09/2022 01/19/20 24
--- OUTSIDE RECORDS SUMMARY | 2025-05-18 18:12 | XMS_ITS | Clinical Summary ---
Author Organization [facility] [address] [place] [address] [place] [phone] Phone Care Team Providers Care Plush Finisher Name Role Phone Chela Melendrez MD Primary Care Provider [phone] Allergies No known active allergies Medications omeprazole (PriLOSEC) [address] capsule Take 1 capsule (20 mg total) by mouth 1 (one) time each day. as directed 90 capsule 1 5 Active cholecalciferol (VITAMIN D-3) 50 mcg (2,000 unit) tablet Take 1 tablet (2,000 Units total) by mouth 1 (one) time each day. 90 tablet 2 5 Active clindamycin (CLEOCIN T) 1 % gel Apply to affected area once daily. 60 g 5 5 11/05/19 26 Active naproxen (NAPROSYN) 500 mg tablet Take 1 tablet (500 mg total) by mouth 2 (two) times a day with meals. Active tirzepatide, weight loss, (Zepbound) 12.5 mg/0.5 mL injection Inject 0.5 mL (12.5 mg total) under the skin every 7 (seven) days. 2 mL 5 06/03/19 26 Active tirzepatide, weight loss, (Zepbound) 10 mg/0.5 mL injection Inject 0.5 mL (10 mg total) under the skin every 7 (seven) days. 2 mL 5 05/01/20 25 Active Problems Problem Noted Date Diagnosed Date Anxiety 12/27/2024 Mild intermittent asthma 12/27/2024 Palpitations 11/04/2024 Class 3 severe obesity with serious comorbidity and body mass index (BMI) of 40.0 to 44.9 in adult 09/29/2024 Prediabetes 09/11/2023 Gastroesophageal reflux disease 09/09/2023 Vitamin D deficiency 09/09/2023 Chronic low back pain 12/20/2020 Knee pain, left 11/16/2020 Seasonal allergic rhinitis 05/19/2017 Onychomycosis 08/31/2012 Asthma 06/17/2011 Iron deficiency anemia 06/17/2011 Encounters Date Type Department Care Team Description 05/04/2025 Telephone Bariatric Surgery [address] [phone] Pj Giron MD 03/31/2025 Telephone Bariatric Surgery [facility] [address] [phone] Pj Giron MD 02/23/2025 Telephone Bariatric Surgery [facility] [address] [phone] Pj Giron MD from Last 3 Months Immunizations Immunization Administration Dates Next Due Influenza Quadravalent, MDCK , 0.5ml, preservative free (Flucelvax) 6mo and older 04/22/2022 Influenza trivalent, 0.5mL, preservative free (Fluarix; FluLaval; Fluzone) ages 6mo and older (Afluria) 3 years and older 04/01/2024 Influenza trivalent, with pr eservative (Fluzone; Afluria) 6mo and older 04/08/2018,04/02/2013 Tdap Tetanus diptheria acell ular pertussis (Boostrix; Adacel) 7yo and older 06/20/2021,08/21/2011 Surgical History Surgery Date Site/Laterality Comments SECTION 2010 PROCEDURE: HI DELIVERY ONLY; COMMENT: and 07/12/19 WISDOM TOOTH EXTRACTION 2001 PROCEDURE: HISTORICAL WISDOM TEETH EXTRACTION OTHER SURGICAL HISTORY PROCEDURE: HI DILATION & CURETTAGE DX&/THER NONOBSTETRIC NASAL SEPTUM SURGERY 11/13/2017 PROCEDURE: HI SEPTOPLASTY/SUBMUCOUS RESECJ W/WO CARTILAGE GRF; COMMENT: Dr Barajas TUBAL LIGATION 07/12/2019 PROCEDURE: HISTORICAL TUBAL LIGATION OTHER SURGICAL HISTORY 2001 PROCEDURE: CERVICAL LEEP CONE BIOPSY [facility] PATHOLOGY EX Medical History Medical History Date Comments Iron deficiency anemia 06/17/2011 DX:Iron d eficiency anemia Asthma, mild intermittent, well-controlled 06/17/2011 DX:Asthma, mild intermittent , well-controlled Seasonal allergic rhinitis 05/19/2017 DX:Se asonal allergic rhinitis Family History Medical History Relation Name Comments Breast cancer Aunt maternal Kidney cancer Aunt maternal w/ nephrectomy ; breast cancer (early 50s); asthma Diabetes Brother x 3 ADHD Asthma Daughter ADHD Other: mva Father 28 Throat cancer Maternal Grandfather +smoke r Diabetes Maternal Grandmother HTN, HL D, COPD (+smoker); CVA Asthma Mother ( 42 d/t as thma attack); stomach tumor (?); cardiac murmur Colon cancer Mother's side 1st cousin son of uncle w / Alfredo Syndrome Breast cancer Other pat cousin Cirrhosis Paternal Grandfather EtOH ab use Alzheimer's disease Paternal Grandmother EtOH abuse No Known Problems Sister x 1 Other: Alfredo Syndrome Uncle maternal HIV positive Relation Name Status Comments Aunt maternal Alive Brother x 3 Alive Daughter Alive Father Maternal Grandfather Maternal Grandmother Mother Mother's side 1st cousin Alive Other pat cousin Paternal Grandfather Paternal Grandmother Sister x 1 Alive Uncle maternal Social History Tobacco Use Types Packs/Day Years Used Date Smoking Tobacco: Former Cigarettes 0 Q uit: 06/01/2023 Smokeless Tobacco: Former Tobacco Cessation:Counseling Given: Not Answered Alcohol Use Standard Drinks/Week Comments Not Currently 0 (1 standard drink = 0.6 oz pur e alcohol) Housing Instability Answer Date Recorde d Are you worried that in the next 2 months you may not have stable housing? No 01/13/2025 Food Access & Nutrition Answer Date Rec orded Do you have access to a vari ety of food including fruits and vegetables? Yes 01/13/2025 Access to Healthcare Answer Date Record ed Within the last 3 months, reese brooks many times did you visit the emergency department for your medical care? 1 01/13/2025 Health Literacy Answer Date Recorded How often do you need to hav e someone help you when you read instructions, pamphlets, or other written material from your doctor or pharmacy? Never 01/13/2025 Caregiver: How often do you need to have someone help you when you read instructions, pamphlets, or other written material from your doctor or pharmacy? Not on file 01/13/2025 Financial Risk Answer Date Recorded How hard is it for you to pa y for the very basics like food, housing, medical care, and air conditioning / heating? Somewhat hard 01/13/2025 Transportation Answer Date Recorded Has the lack of transportati on kept you from meetings, work, or from getting things needed for daily living? No Has the lack of transportati on kept you from medical appointments or from getting medications? No 01/13/2025 Social Isolation Answer Date Recorded How often do you feel lonely or isolated from ose around you? Never 01/13/2025 Food Risk Answer Date Recorded Within the past 12 months we worried whether our food would run out before we got money to buy more. Sometimes true 025 Within the past 12 months th e food we bought just didn't last and we didn't have money to get more. Sometimes true 01/13/2025 Dependent Care Answer Date Recorded Do you need help finding or paying for care for your loved ones. For example, summer child caregiver or elderly care for an older adult? No 01/13/2025 Education Answer Date Recorded Do you think completing more education or training, like finishing a GED, going to college, or learning a trade, would be helpful for you? N/A 01/13/2025 Employment and Income Answer Date Recor ded During the last four weeks, have you been actively looking for work? No 01/13/2025 Living Situation Answer Date Recorded What is your living situation? Unrecognized valu e 01/13/2025 Comments Unknown Sex and Gender Information Value Date Recorded Sex Assigned at Not on file Legal Sex Female 3:33 PM EST Gender Identity Not on file Sexual Orientation Not on file Obstetrics History Para Term AB IAB SAB Ectopic Multiple Livin g Live Births 2 2 2 2 Date Outcome GA Total Labor Labor/2nd/3rd Weight Sex Type Anes PTL Berenice A1 A5 Name Clin Term Term Last Filed Vital Signs Vital Sign Reading Time Taken Comments Blood Pressure 100/58 01/13/2025 11:12 AM EDT Pulse 76 01/13/2025 11:12 AM EDT Temperature 36.4 C (97.5 F) 01/13/2025 11:12 AM EDT Respiratory Rate 14 01/13/2025 11:12 AM EDT Oxygen Saturation 98% 01/13/2025 11:12 AM EDT Inhaled Oxygen Concentration - - Weight 120 kg (264 lb) 01/13/2025 11:12 AM EDT Height 167.6 cm (5' 6 ) 01/13/2025 11:12 AM EDT Body Mass Index 42.61 01/13/2025 11:12 AM EDT Plan of Treatment Upcoming Encounters Date Type Department Care Team (Late st Contact Info) Description 06/30/2025 9:15 AM EST Office Visit Bariatric Surgery - [address] [place] [phone] Pj Giron MD [address] [place] [phone] 07/19/2025 8:30 AM EST Office Visit Adult Medicine [address] [phone] Chela Melendrez MD [address] [place] [phone] Health Maintenance Due Date Last Done Comments Hepatitis B Vaccines (1 of 3 - 19+ 3-dose series) 01/04/2003 Pneumococcal Vaccine: Pediatrics (0 to 5 Years) and At-Risk Patients (6 to 49 Years) (1 of 2 - PCV) 01/04/2003 HPV Vaccines (1 - 3-dose SCDM series) 01/04/2011 Cervical Cancer Screening: Pap Smear 06/23/2020 06/23/2017, 06/18/2017 COVID-19 Vaccine ( season) 2025 10/04/2020, 09/06/2020 Influenza Vaccine (#1) 2025 , 04/22/2022, 04/08/2018, Additional history exists Social Influencers of Health Screening 01/13/2026 01/13/2025 Breast Cancer Screening 07/15/2026 07/15/2024 Cholesterol Screening (Lipid Panel) 08/03/2029 08/03/2024, 09/09/2023 DTaP,Tdap,and Td Vaccines (3 - Td or Tdap) 06/20/2031 06/20/2021, 08/21/2011 RSV Immunization Adult Patients (1 - 1-dose 75+ series) 01/04/2059 HIV Screening Completed 07/09/2018 Hepatitis C Screening Completed 07/09/2018 Depression Screening Completed 01/13/2025 HIB Vaccines Aged Out No longer eligi ble based on patient's age to complete this topic Hepatitis A Vaccines Aged Out No long er eligible based on patient's age to complete this topic IPV Vaccines Aged Out No longer eligi ble based on patient's age to complete this topic MMR Vaccines Aged Out No longer eligi ble based on patient's age to complete this topic Meningococcal ACWY Vaccine Aged Out N o longer eligible based on patient's age to complete this topic Meningococcal B Vaccine Aged Out No l onger eligible based on patient's age to complete this topic RSV Immunization Patients Under 20 months Aged Out No longer eligible based on patient's age to complete this topic Varicella Vaccines Aged Out No longer eligible based on patient's age to complete this topic Procedures Procedure Name Priority Date/Time Associated Diagnosis Comments LIPID PANEL WITH REFLEX TO DIRECT LDL Routine 08/03/2024 10:04 AM EST Elevated LDL cholesterol level MG MAMMO DIGITAL SCREENING W RUI BILAT Routine 07/15/2024 8:14 AM EST Screening mammogram for breast cancer HEPATITIS C SCREENING Routine 07/09/2018 HIV SCREENING Routine 07/09/2018 PAP SMEAR Routine 06/23/2017 11:25 AM EST from Last 3 Months or Most Recently Relevant to Health Maintenance Results * Lipid panel with reflex to direct LDL (08/03/2024 10:04 AM EST) Blood Venous blood specimen / Unknown us Chela Melendrez MD LAB BLOOD ORDERABLES Final Resul t EXTERNAL LAB (NON-INTERFACED) * MG Mammo Digital Screening w Rui bilat (07/15/2024 8:14 AM EST) Anatomical Region Laterality Modality Breast Bilateral Mammography 07/15/2024 4:34 PM EST Impressions 07/15/2024 4:35 PM EST No mammographic evidence of malignancy. BREAST DENSITY: C - The breasts are heterogeneously dense which may obscure small masses. BI-RADS CATEGORY: 1 - NEGATIVE RECOMMENDATION: Screening bilateral mammogram is recommended in 1 year. MAMMO LOCATION: [facility], [address] [place] [address], [id number], . -------- FINAL REPORT -------- Dictated By: Rosana Gibbs Dictated Date: 07/15/2024 16:34 ET Assigned Physician: Rosana Gibbs Reviewed and Electronically Signed By: Rosana Gibbs Signed Date: 07/15/2024 16:35 ET Workstation ID: [id number] Transcribed By: Self Edit Transcribed Date: 07/15/2024 16:34 ET Narrative 07/15/2024 4:35 PM EST EXAM: Screening Mammogram CLINICAL: 39 years old, Female, routine annual exam. COMPARISON: This is a baseline exam. TECHNIQUE: Bilateral MLO and CC views were obtained digitally with 3-D mammogram (digital breast tomosynthesis). Computer-aided detection was utilized in evaluation of this exam (CAD). FINDINGS: No suspicious mass, architectural distortion, or suspicious calcifications. Procedure Note Rosana Gibbs MD - 07/15/2024 EXAM: Screening Mammogram CLINICAL: 39 years old, Female, routine annual exam. COMPARISON: This is a baseline exam. TECHNIQUE: Bilateral MLO and CC views were obtained digitally with 3-Dmammogram (digital breast tomosynthesis). Computer-aided detection wasutilized in evaluation of this exam (CAD). FINDINGS: No suspicious mass, architectural distortion, or suspiciouscalcifications. IMPRESSION: No mammographic evidence of malignancy. BREAST DENSITY: C - The breasts are heterogeneously dense which mayobscure small masses. BI-RADS CATEGORY: 1 - NEGATIVE RECOMMENDATION: Screening bilateral mammogram is recommended in 1 year. MAMMO LOCATION: [facility], [address] [place] [address], [id number], . -------- FINAL REPORT -------- Dictated By: Rosana Gibbs Dictated Date: 07/15/2024 16:34 ET Assigned Physician: Rosana Gibbs Reviewed and Electronically Signed By: Rosana Gibbs Signed Date: 07/15/2024 16:35 ET Workstation ID: [id number] Transcribed By: Self Edit Transcribed Date: 07/15/2024 16:34 ET Chela Melendrez MD IMG BI PROCEDURES Final Result * HIV Screening (07/09/2018) HIV Screening abstracted Historical Provider HEALTH MAINTENANCE Final Result * Hepatitis C Screening (07/09/2018) Hepatitis C Screening abstracted Historical Provider HEALTH MAINTENANCE Final Result * Pap smear (06/23/2017 11:25 AM EST) Brushing/Spatula Cervix uteri structure / Unknown Result [facility] Historical Provider LAB CYTOLOGY ORDERABLES F inal Result from Last 3 Months or Most Recently Relevant to Health Maintenance Insurance [place] [facility] Care Teams Plush Finisher Relationship Specialty Start Date End Date Chela Melendrez MD [address] [place] [phone] PCP - General Internal Medicine 04/07/24
== END 2025-05-18 15:29 | disposition home or self-care (01) ==
LOC: HO.HPHYS 13:41
PROVIDERS: PCP Internal Medicine; Visit Provider Physician Assistant
DX: M54.16 Radiculopathy, lumbar region (principal); M47.816 Spondylosis without myelopathy or radiculopathy, lumbar region
CPT/HCPCS: 99213